=== PATIENT | female | born 1955 | race Caucasian/White ===

== ENCOUNTER 2017-10-05 12:24 | Emergency (ER) | payer BC ==
[2017-10-05 12:33] VITALS: BP 135/59
--- NOTE | 2017-10-05 13:05 | EDM.PDOC ---
ED HPI GENERAL MEDICAL PROBLEM - General Chief Complaint: Lower Extremity Injury/Pain Stated Complaint: [id number] LEGS CRAMPING Time Seen by Provider: 10/05/17 12:45 Source of Information: Reports: Patient, Family, Old Records, RN, RN Notes Reviewed History Limitations: Reports: Other (Patient has a hx of dementia ) - History of Present Illness INITIAL COMMENTS - FREE TEXT/NARRATIVE: Gissell is a 62 yo F who presents today with family due to cramping in her left leg that started approximately an hour ago. She describes the pain as a cramping pain to the back of her calf that started while she was sitting in a chair. She reports that she has experienced leg cramping off and on for the last several years off and on. Denies experiencing any other associated symptoms including chest pain, shortness of breath, nausea, vomiting, palpitations, dizziness, vision changes, or abdominal pain. Patient has an underlying hx of dementia and has a punch pack to manage her pills at home. Denies any recent medication changes. Onset: Today Onset Date: 10/05/17 Onset Time: 11:30 Duration: Hour(s): Location: Reports: Lower Extremity, Left Quality: Reports: Ache, Throbbing Severity: Moderate Improves with: Reports: Movement Worsens with: Reports: Rest Associated Symptoms: Reports: No Other Symptoms Bilateral Leg Pain Score (Numeric/FACES): 2 - Related Data Allergies Allergy/AdvReac Type Severity Reaction Status Date / Time No Known Allergies Allergy Verified 10/05/17 12:30 Home Meds: Home Meds Aspirin 81 mg PO DAILY 08/14/15 [History] Hydrochlorothiazide 25 mg PO DAILY 08/14/15 [History] Levothyroxine 75 mcg PO DAILY 08/14/15 [History] Valsartan [Diovan] 320 mg PO DAILY 08/14/15 [History] atorvaSTATin [Lipitor] 40 mg PO DAILY 08/14/15 [History] Donepezil [Aricept] 5 mg PO BEDTIME 10/05/17 [History] Empagliflozin [Jardiance] 25 mg PO DAILY 10/05/17 [History] Insulin Glarg,Human.Rec.Analog [Lantus] 70 unit SQ DAILY 10/05/17 [History] Insulin Lispro [HumaLOG] 100 units SQ ASDIRECTED 10/05/17 [History] Metoprolol Succinate 200 mg PO DAILY 10/05/17 [History] Potassium Chloride [K-Tab ER] 20 meq PO DAILY 10/05/17 [History] Past Medical History HEENT History: Reports: Impaired Vision Cardiovascular History: Reports: High Cholesterol, Hypertension Psychiatric History: Reports: Dementia Endocrine/Metabolic History: Reports: Diabetes, Type I - Past Surgical History Musculoskeletal Surgical History: Reports: Other (See Below) Other Musculoskeletal Surgeries/Procedures:: back surgery Social & Family History - Family History Family Medical History: Noncontributory - Tobacco Use Smoking Status *Q: Never Smoker Second Hand Smoke Exposure: No - Caffeine Use Caffeine Use: Reports: Soda - Recreational Drug Use Recreational Drug Use: No Review of Systems - Review of Systems Review Of Systems: ROS reveals no pertinent complaints other than HPI. ED EXAM, GENERAL - Physical Exam Exam: See Below Exam Limited By: No Limitations General Appearance: Alert, WD/WN, No Apparent Distress Eye Exam: Bilateral Eye: PERRL Ears: Normal External Exam, Normal Canal, Hearing Grossly Normal, Normal TMs Ear Exam: Bilateral Ear: Auricle Normal, Canal Normal, TM normal Nose: Normal Inspection, Normal Mucosa, No Blood Throat/Mouth: Normal Inspection, Normal Lips, Normal Teeth, Normal Gums, Normal Oropharynx, Normal Voice, No Airway Compromise Head: Atraumatic, Normocephalic Neck: Normal Inspection, Supple, Non-Tender, Full Range of Motion Respiratory/Chest: No Respiratory Distress, Lungs Clear, Normal Breath Sounds, No Accessory Muscle Use, Chest Non-Tender Cardiovascular: Normal Peripheral Pulses, Regular Rate, Rhythm, No Edema, No Gallop, No JVD, No Murmur, No Rub GI/Abdominal: Normal Bowel Sounds, Soft, Non-Tender, No Organomegaly, No Distention, No Abnormal Bruit, No Mass (Female) Exam: Deferred Rectal (Female) Exam: Deferred Back Exam: Normal Inspection, Full Range of Motion, NT Extremities: Normal Inspection, Normal Range of Motion, No Pedal Edema, Normal Capillary Refill, Leg Pain (Pain to left leg off and on describes as cramping) Neurological: Alert, Oriented, CN II-XII Intact, Normal Cognition, Normal Gait, Normal Reflexes, No Motor/Sensory Deficits Psychiatric: Normal Affect, Normal Mood Skin Exam: Warm, Dry, Intact, Normal Color, No Rash Lymphatic: No Adenopathy Course - Vital Signs Last Recorded V/S: Last Vital Signs Temp 36.2 C 10/05/17 12:30 Pulse 82 10/05/17 12:30 Resp 20 10/05/17 12:30 BP 135/59 L 10/05/17 12:30 Pulse Ox 98 10/05/17 12:30 - Orders/Labs/Meds Labs: Laboratory Tests 10/05/17 10/05/17 Range/Units 13:02 13:02 WBC 8.2 (5.0-10.0) 10^3/uL RBC 4.18 L (4.2-5.4) 10^6/uL Hgb 11.9 L (12.0-16.0) g/dL Hct 37.3 (37.0-47.0) % MCV 89.2 (80-100) fL MCH 28.5 (27.0-34.0) pg MCHC 31.9 L (33.0-35.0) g/dL Plt Count 295 (150-450) 10^3/uL Neut % (Auto) 63.7 (42.2-75.2) % Lymph % (Auto) 25.6 (20.5-50.1) % Rowan % (Auto) 8.3 H (2-8) % Eos % (Auto) 1.9 (1.0-3.0) % Baso % (Auto) 0.5 (0.0-1.0) % Sodium 137 (135-145) mmol/L Potassium 4.3 (3.6-5.0) mmol/L Chloride 105 (101-111) mmol/L Carbon Dioxide 23.0 (21.0-31.0) mmol/L Anion Gap 13.3 BUN 43 H (7-18) mg/dL Creatinine 1.5 H (0.6-1.3) mg/dL Est Cr Clr Drug Dosing 30.76 mL/min Estimated GFR (MDRD) 35 BUN/Creatinine Ratio 28.66 Glucose 89 (74-105) mg/dL Calcium 9.2 (8.4-10.2) mg/dl Total Bilirubin 0.4 (0.2-1.0) mg/dL AST 20 (10-42) IU/L ALT 16 (10-60) IU/L Alkaline Phosphatase 96 (42-121) IU/L Total Protein 7.4 (6.7-8.2) g/dl Albumin 3.9 (3.2-5.5) g/dl Globulin 3.5 Albumin/Globulin Ratio 1.11 Departure - Departure Time of Disposition: 14:28 Disposition: Home, Self-Care 01 Condition: Good Clinical Impression: Leg cramping Renal failure Qualifiers: Renal failure chronicity: unspecified chronicity Qualified Code(s): N19 - Unspecified kidney failure - Discharge Information Instructions: Muscle Cramps and Spasms, [id number] Forms: ED Department Discharge Care Plan Goals: Follow-up with your primary care facility next week regarding your kidney function. Drink plenty of fluids. Tylenol/ibuprofen as need for pain.
== END 2017-10-05 14:38 | disposition home or self-care (01) ==
LOC: DL.ED 12:24
DX: R25.2 Cramp and spasm (principal); N19 Unspecified kidney failure; E78.00 Pure hypercholesterolemia, unspecified; I10 Essential (primary) hypertension; E10.9 Type 1 diabetes mellitus without complications; Z79.82 Long term (current) use of aspirin; Z79.899 Other long term (current) drug therapy
CPT/HCPCS: 36415; 80053; 85025; 99283

== ENCOUNTER 2019-09-28 18:47 | Emergency (ER) | payer BC ==
[2019-09-28 19:37] VITALS: BP 124/77; PULSE 59
--- NOTE | 2019-09-28 21:06 | EDM.PDOC ---
ED HPI GENERAL MEDICAL PROBLEM - General Chief Complaint: Body Fluid Exposure Stated Complaint: 1ST PERSON INSULIN NEEDLE, NEEDS TO BE CHECKED Time Seen by Provider: 09/28/19 20:45 Source of Information: Reports: Patient, RN History Limitations: Reports: Altered Mental Status (baseline dementia) - History of Present Illness INITIAL COMMENTS - FREE TEXT/NARRATIVE: ED for lab draw to due needlestick from staff member while changing needle on insulin pen. Patient states nurse drawing blood and she pulled away and since nurse got blood on her requested patient be drawn. Denies hx of infectious disease - Related Data Allergies Allergy/AdvReac Type Severity Reaction Status Date / Time No Known Allergies Allergy Verified 09/28/19 19:37 Home Meds: Home Meds Aspirin 81 mg PO DAILY 08/14/15 [History] Hydrochlorothiazide 25 mg PO DAILY 08/14/15 [History] Levothyroxine 75 mcg PO DAILY 08/14/15 [History] Valsartan [Diovan] 320 mg PO DAILY 08/14/15 [History] atorvaSTATin [Lipitor] 40 mg PO DAILY 08/14/15 [History] Donepezil [Aricept] 5 mg PO BEDTIME 10/05/17 [History] Empagliflozin [Jardiance] 25 mg PO DAILY 10/05/17 [History] Insulin Glarg,Human.Rec.Analog [Lantus] 70 unit SQ DAILY 10/05/17 [History] Insulin Lispro [HumaLOG] 100 units SQ ASDIRECTED 10/05/17 [History] Metoprolol Succinate 200 mg PO DAILY 10/05/17 [History] Potassium Chloride [K-Tab ER] 20 meq PO DAILY 10/05/17 [History] Past Medical History HEENT History: Reports: Impaired Vision Cardiovascular History: Reports: High Cholesterol, Hypertension Respiratory History: Reports: None Gastrointestinal History: Reports: None Genitourinary History: Reports: None [employer] SPECIALIST History: Reports: None Neurological History: Reports: None Psychiatric History: Reports: Dementia Endocrine/Metabolic History: Reports: Diabetes, Type I, Hypothyroidism Hematologic History: Reports: None Immunologic History: Reports: None Oncologic (Cancer) History: Reports: None Dermatologic History: Reports: None - Past Surgical History Musculoskeletal Surgical History: Reports: Other (See Below) Other Musculoskeletal Surgeries/Procedures:: back surgery Social & Family History - Family History Family Medical History: Noncontributory - Tobacco Use Smoking Status *Q: Never Smoker - Caffeine Use Caffeine Use: Reports: Soda - Recreational Drug Use Recreational Drug Use: No ED ROS GENERAL - Review of Systems Review Of Systems: Comprehensive ROS is negative, except as noted in HPI. ED EXAM, GENERAL - Physical Exam Exam: See Below Exam Limited By: No Limitations General Appearance: Alert, No Apparent Distress Ears: Normal External Exam, Hearing Grossly Normal Nose: Normal Inspection Throat/Mouth: Normal Inspection Head: Atraumatic, Normocephalic Neck: Normal Inspection Respiratory/Chest: No Respiratory Distress, Lungs Clear Cardiovascular: Regular Rate, Rhythm Extremities: Normal Inspection Neurological: Alert, Oriented (person place), Memory Loss Recent Events Psychiatric: Normal Affect, Normal Mood Skin Exam: Warm, Dry, Intact, Normal Color Course - Vital Signs Last Recorded V/S: Last Vital Signs Temp 97.6 F 09/28/19 19:35 Pulse 59 L 09/28/19 19:35 Resp 16 09/28/19 19:35 BP 124/77 09/28/19 19:35 Pulse Ox 100 09/28/19 19:35 - Orders/Labs/Meds Orders: Active Orders 24 hr Category Date Time Status HBSAG SCREEN [REF] Routine Lab 09/28/19 19:55 Received HEP C VIRUS AB [REF] Routine Lab 09/28/19 19:55 Received Labs: Laboratory Tests 09/28/19 Range/Units 19:55 HIV-1 Antibody Non-reactive (NONREACTIVE) HIV-2 Antibody Non-reactive (NONREACTIVE) HIV P24 Antigen Non-reactive (NONREACTIVE) Departure - Departure Time of Disposition: 21:03 Disposition: Home, Self-Care 01 Condition: Good Clinical Impression: Exposure to body fluids by contaminated hypodermic needle stick - Discharge Information *PRESCRIPTION DRUG MONITORING PROGRAM REVIEWED*: No *COPY OF PRESCRIPTION DRUG MONITORING REPORT IN PATIENT CHASE: No Instructions: Body Fluid Exposure Information Forms: ED Department Discharge Additional Instructions: follow up as needed Sepsis Event Note - Evaluation Sepsis Screening Result: No Definite Risk - Focused Exam Vital Signs: Vital Signs Temp Pulse Resp BP Pulse Ox 09/28/19 19:35 97.6 F 59 L 16 124/77 100 Date Exam was Performed: 09/29/19 Time Exam was Performed: 05:37 - My Orders Last 24 Hours: My Active Orders 09/28/19 19:55 HBSAG SCREEN [REF] Routine HEP C VIRUS AB [REF] Routine - Assessment/Plan Last 24 Hours: My Active Orders 09/28/19 19:55 HBSAG SCREEN [REF] Routine HEP C VIRUS AB [REF] Routine
== END 2019-09-28 21:20 | disposition home or self-care (01) ==
LOC: DL.ED 18:47
DX: Z77.21 Contact with and (suspected) exposure to potentially hazardous body fluids (principal); E78.00 Pure hypercholesterolemia, unspecified; I10 Essential (primary) hypertension; E10.9 Type 1 diabetes mellitus without complications; F03.90 Unspecified dementia, unspecified severity, without behavioral disturbance, psychotic disturbance, mood disturbance, and anxiety; E03.9 Hypothyroidism, unspecified; Z79.82 Long term (current) use of aspirin; Z79.899 Other long term (current) drug therapy
CPT/HCPCS: 36415; 86803; 87340; 87389; 99283

== ENCOUNTER 2021-08-05 03:58 | Emergency (ER) | payer MEDICARE ==
[2021-08-05 05:26] VITALS: BP 145/52; PULSE 62
[2021-08-05 05:49] LABS: ANION GAP 14.4 mEq/L (7-13)
== END 2021-08-05 07:55 ==
LOC: DL.ED 03:58
DX: T68.XXXA Hypothermia, initial encounter (principal); F03.90 Unspecified dementia, unspecified severity, without behavioral disturbance, psychotic disturbance, mood disturbance, and anxiety; E78.00 Pure hypercholesterolemia, unspecified; I10 Essential (primary) hypertension; E10.9 Type 1 diabetes mellitus without complications; E03.9 Hypothyroidism, unspecified; Z79.82 Long term (current) use of aspirin; Z79.899 Other long term (current) drug therapy
CPT/HCPCS: 36415; 70450; 80053; 81003; 83605; 85025; 99285-25